=== PATIENT | female | born 1975 | race Caucasian/White ===

== ENCOUNTER → 2023-11-07 19:20 | Outpatient (REF) | payer OTHER, SELFPAY | LOC: WDC 19:20 | PROVIDERS: ATTENDING PHYSICIAN Student in an Organized Health Care Education/Training Program; FAMILY PHYSICIAN Internal Medicine | DX: Z12.31 Encounter for screening mammogram for malignant neoplasm of breast (principal) | CPT/HCPCS: 77063; 77067 ==

== ENCOUNTER → 2023-11-20 06:29 | Day surgery (SDC) | payer OTHER, SELFPAY | LOC: GI 06:29 | PROVIDERS: ATTENDING PHYSICIAN Internal Medicine | DX: K22.4 Dyskinesia of esophagus (principal); K44.9 Diaphragmatic hernia without obstruction or gangrene; R13.10 Dysphagia, unspecified | CPT/HCPCS: 43249; 43239; 88305 ==

== ENCOUNTER → 2023-12-10 06:25 | Day surgery (SDC) | payer OTHER, SELFPAY | LOC: GI 06:25 | PROVIDERS: ATTENDING PHYSICIAN Internal Medicine | DX: K64.9 Unspecified hemorrhoids (principal); Z80.0 Family history of malignant neoplasm of digestive organs | CPT/HCPCS: 45378 ==

== ENCOUNTER → 2024-08-18 13:13 | Outpatient (REF) | payer OTHER, SELFPAY | LOC: HWRAD 13:13 | PROVIDERS: ATTENDING PHYSICIAN Student in an Organized Health Care Education/Training Program; FAMILY PHYSICIAN Internal Medicine | DX: N92.3 Ovulation bleeding (principal) | CPT/HCPCS: 76830; 76856 ==

== ENCOUNTER 2024-10-05 18:14 | Outpatient (RCR) | payer OTHER, SELFPAY | END 2024-10-05 23:59 | disposition home or self-care (01) | LOC: RPT 18:14 | PROVIDERS: ATTENDING PHYSICIAN Student in an Organized Health Care Education/Training Program; FAMILY PHYSICIAN Internal Medicine | DX: N39.3 Stress incontinence (female) (male) (principal); Z73.6 Limitation of activities due to disability; K59.00 Constipation, unspecified; Z85.850 Personal history of malignant neoplasm of thyroid | CPT/HCPCS: 97112; 97140; 97163; 97530 ==

== ENCOUNTER → 2024-11-10 13:26 | Outpatient (REF) | payer OTHER, SELFPAY | LOC: HWWDC 13:26 | PROVIDERS: ATTENDING PHYSICIAN Student in an Organized Health Care Education/Training Program; FAMILY PHYSICIAN Nurse Practitioner | DX: Z12.31 Encounter for screening mammogram for malignant neoplasm of breast (principal); M54.50 Low back pain, unspecified; M25.552 Pain in left hip | CPT/HCPCS: 72110; 73130; 73502; 77063; 77067 ==

== ENCOUNTER 2024-11-11 18:08 | Outpatient (RCR) | payer OTHER, SELFPAY | END 2024-11-11 23:59 | disposition home or self-care (01) | LOC: RPT 18:08 | PROVIDERS: ATTENDING PHYSICIAN Student in an Organized Health Care Education/Training Program; FAMILY PHYSICIAN Internal Medicine | DX: N39.3 Stress incontinence (female) (male) (principal); Z73.6 Limitation of activities due to disability; K59.00 Constipation, unspecified; Z85.850 Personal history of malignant neoplasm of thyroid | CPT/HCPCS: 97112; 97140; 97530 ==

== ENCOUNTER 2024-12-09 18:07 | Outpatient (RCR) | payer OTHER, SELFPAY | END 2024-12-09 23:59 | disposition home or self-care (01) | LOC: RPT 18:07 | PROVIDERS: ATTENDING PHYSICIAN Student in an Organized Health Care Education/Training Program; FAMILY PHYSICIAN Internal Medicine | DX: N39.3 Stress incontinence (female) (male) (principal); Z73.6 Limitation of activities due to disability; K59.00 Constipation, unspecified; Z85.850 Personal history of malignant neoplasm of thyroid | CPT/HCPCS: 97110; 97112; 97530 ==

== ENCOUNTER → 2024-12-29 13:28 | Outpatient (REF) | payer OTHER, SELFPAY | LOC: HWRAD 13:28 | PROVIDERS: ATTENDING PHYSICIAN Nurse Practitioner | DX: J20.9 Acute bronchitis, unspecified (principal) | CPT/HCPCS: 71046 ==

== ENCOUNTER 2025-01-06 18:09 | Outpatient (RCR) | payer OTHER, SELFPAY | END 2025-01-06 23:59 | disposition home or self-care (01) | LOC: RPT 18:09 | PROVIDERS: ATTENDING PHYSICIAN Student in an Organized Health Care Education/Training Program; FAMILY PHYSICIAN Internal Medicine | DX: N39.3 Stress incontinence (female) (male) (principal); Z73.6 Limitation of activities due to disability; K59.00 Constipation, unspecified; Z85.850 Personal history of malignant neoplasm of thyroid | CPT/HCPCS: 97110; 97112; 97530 ==

== ENCOUNTER 2025-01-20 17:44 | Outpatient (RCR) | payer OTHER, SELFPAY | END 2025-01-20 23:59 | disposition home or self-care (01) | LOC: RPT 17:44 | PROVIDERS: ATTENDING PHYSICIAN Student in an Organized Health Care Education/Training Program; FAMILY PHYSICIAN Internal Medicine | DX: N39.3 Stress incontinence (female) (male) (principal); Z73.6 Limitation of activities due to disability; K59.00 Constipation, unspecified; Z85.850 Personal history of malignant neoplasm of thyroid | CPT/HCPCS: 97112; 97140 ==

== ENCOUNTER 2025-03-03 18:23 | Outpatient (RCR) | payer OTHER, SELFPAY | END 2025-03-03 23:59 | disposition home or self-care (01) | LOC: RPT 18:23 | PROVIDERS: ATTENDING PHYSICIAN Student in an Organized Health Care Education/Training Program; FAMILY PHYSICIAN Internal Medicine | DX: N39.3 Stress incontinence (female) (male) (principal); Z73.6 Limitation of activities due to disability; K59.00 Constipation, unspecified; Z85.850 Personal history of malignant neoplasm of thyroid | CPT/HCPCS: 97112; 97140; 97530 ==